=== PATIENT | female | born 1985 | race Caucasian/White ===

== ENCOUNTER 2017-04-20 03:56 | Inpatient (IN) | payer OTHER ==
[2017-04-20 05:26] LABS: BASOPHIL 0.2 % (0-2.0); EOSINOPHIL 0.5 % (0-4.5); MCH 32.1 pg (25.7-33.7); MCHC 34.3 g/dl (32.0-36.0); MEAN CELL VOLUME 93.6 fl (80-96); MEAN PLT VOLUME 8.1 fl (7.5-11.1); PLATELET COUNT 256 K/MM3 (134-434); RDW 13.7 % (11.6-15.6); WHITE BLOOD COUNT 7.8 K/mm3 (4.0-10.0)
--- NOTE | 2017-04-20 05:26 | PN ---
Progress Note (short form) - Note Progress Note: cx 2 cm 70 vx -3 , multiple variable decel , arom, clear fluid . scalp electrode applied, lt side, o2 , iv hydration, revaluate
[2017-04-20] MEDS ORDERED: CITRIC ACID/SODIUM CITRATE 30 ML UNIT-DOSE CUP PO ONE (05:28)
[2017-04-20] MEDS ORDERED: ELECTROLYTE-148 SOLN 1,000 ML IV SCH (05:30)
[2017-04-20 05:36] VITALS: BMI 27.6
[2017-04-20 06:03] LABS: INR 0.97 (0.82-1.09); PROTHROMBIN TIME (PATIENT) 10.7 SEC (9.98-11.88)
[2017-04-20 06:06] LABS: ACTIVATED PTT 29.8 SECONDS (26.9-34.4)
[2017-04-20 06:08] LABS: ANION GAP 8 (8-16); CALCIUM 8.5 mg/dL (8.5-10.1); CO2 24 mmol/L (21-32); CREATININE 0.6 mg/dL (0.55-1.02); GLUCOSE,RANDOM 87 mg/dL (74-106)
--- NOTE | 2017-04-20 06:22 | PN ---
Progress Note (short form) - Note Progress Note: cx 2 cm 70 vx -3 with multiple variable decelration, advised c/s in view of early labor and multiple variable with late component advised c/s. rba discussed
[2017-04-20] MEDS ORDERED: BENZOCAINE 20% 57 GM BOTTLE TP PRN (06:25)
[2017-04-20] MEDS ORDERED: diphenhydrAMINE HCL 25 MG CAPSULE (FP) PO PRN (06:25)
[2017-04-20] MEDS ORDERED: BENZOCAINE 28 GM HEMORRHOIDAL OINTMENT PR PRN (06:25)
[2017-04-20] MEDS ORDERED: METHYLERGONOVINE MALEATE 0.2 MG/1 ML AMP IM PRN (06:25)
[2017-04-20] MEDS ORDERED: WITCH HAZEL 50% (TUCKS) 40 PAD/JAR PAD TP PRN (06:25)
[2017-04-20] MEDS ORDERED: oxyCODONE HCL 5 MG TABLET PO PRN (06:25)
[2017-04-20] MEDS ORDERED: morphine SULFATE/Preservative Free 0.5 MG/ML (1cc Syringe) SPIN ONE (06:29)
[2017-04-20] MEDS ORDERED: OXYTOCIN 20 UNITS in 0.9% NS 1,000 ML IV SCH (06:30)
--- NOTE | 2017-04-20 06:31 | HP ---
Past Medical History - Primary Care Physician PCP:: Catarino Caruso - Admission Chief Complaint: 39 .2 weeks,labor, non reassuring fhr History of Present Illness: 31 yo f edc by sono 04/25/17 in labor , cx 2 cm 75 vx -3 mi, fhr cat 2, with multiple variable decel , ,3 rd visit to l&D , previous fhm stips had multiple variable as well , 2 decel with late component advised c/s rba discussed History Source: Patient Limitations to Obtaining History: No Limitations - Past Medical History ...: 1 ...Para: 0 ...Term: 0 ...: 0 ...Spon : 0 ...Induced : 0 ...Multiple Gestation: 0 ...LMP: 07/19/16 ... Weeks Gestation by Dates: 39.2 ...EDC by Dates: 04/25/17 ...EDC by Sono: 04/25/17 - Past Surgical History Hx Myomectomy: No Hx Transabdominal Cerclage: No - Smoking History Smoking history: Never smoked Have you smoked in the past 12 months: No - Alcohol/Substance Use Hx Alcohol Use: No - Social History History of Recent Travel: Yes Other Social History: transfer at 28 weeks ,from [facility] – [place] Home Medications - Allergies Allergies/Adverse Reactions: Allergies Allergy/AdvReac Type Severity Reaction Status Date / Time No Known Allergies Allergy Verified 04/17/17 09:31 - Home Medications Home Medications: Ambulatory Orders Ferrous Sulfate 325 mg PO DAILY 04/17/17 Vit #108/Iron/FA [ One Tablet] 1 tab PO DAILY 04/17/17 Review of Systems - Review of Systems Constitutional: reports: No Symptoms Eyes: reports: No Symptoms HENT: reports: No Symptoms Neck: reports: No Symptoms Cardiovascular: reports: No Symptoms Respiratory: reports: No Symptoms Gastrointestinal: reports: No Symptoms Genitourinary: reports: No Symptoms Breasts: reports: No Symptoms Reported Musculoskeletal: reports: No Symptoms Integumentary: reports: No Symptoms Neurological: reports: No Symptoms Physical Exam - Maternity Vital Signs: Vital Signs Temperature 98.1 F 04/20/17 05:00 Pulse Rate 85 04/20/17 05:00 Respiratory Rate 20 04/20/17 05:00 Blood Pressure 112/66 04/20/17 05:00 O2 Sat by Pulse Oximetry (%) Constitutional: Yes: Well Nourished, No Distress, Calm Eyes: Yes: WNL, Conjunctiva Clear, EOM Intact HENT: Yes: WNL, Atraumatic, Normocephalic Neck: Yes: WNL, Supple, Trachea Midline Cardiovascular: Yes: WNL, Regular Rate and Rhythm Breast(s): Yes: WNL - Abdominal Exam/OB Fundal Height: 38 Number of Fetuses: Single Contractions: Yes Regularity: Regular Intensity: Mod/Strong Monitor Mode: External Heart Rate Location: [facility] Category: II Accelerations: Non-Uniform Decelerations: Variable - Vaginal Exam/OB Vaginal Bleediing: No Speculum Exam: No Dilatation (cm): 2 cm Effacement (%): 50 Amniotic Membrane Status: Ruptured Amniotic Fluid: Yes: Blood Stained Meconium: Light Presentation: Vertex/Position Station: -3 - Physical Exam Edema: LLE: Trace, RLE: Trace Deep Tendon Reflex Grade: Normal +2 - Labs Lab Results: CBC, BMP 04/20/17 05:00 04/20/17 05:00 Hemorrhage Risk Assessment - Risk Factors High Risk Factors: Yes: None Risk Score: 0 Risk Level: Low Risk Problem List - Problems (1) 39 weeks gestation of Code(s): Z3A.39 - 39 WEEKS GESTATION OF (2) Labor established Code(s): SOM4357 - (3) Non-reassuring heart rate or rhythm affecting management of fetus Code(s): VPY8903 - Assessment/Plan c/s rba discussed
[2017-04-20] MEDS ORDERED: ONDANSETRON 4 MG/2 ML VIAL IVPB PRN (06:38)
[2017-04-20 07:31] LABS: VENOUS PH 7.37 (7.32-7.42)
[2017-04-20 07:32] LABS: VENOUS BLOOD GAS HCO3 26.1 meq/L (19-25)
[2017-04-20 07:34] LABS: ARTERIAL BLOOD GAS PO2 14.4 mmHg (80-100); ARTERIAL BLOOD GAS pH 7.29 (7.35-7.45)
[2017-04-20 07:35] LABS: ART PUNCT SITE OTHER; ARTERIAL BLD GAS O2 SATURATION 14.8 % (90-98.9); ARTERIAL BLOOD GAS BASE EXCESS 1.2 meq/l (-2-2); ARTERIAL BLOOD GAS HCO3 28.8 meq/L (22-26); LPM/O2% 21%; PT. ON O2? NO; TYPE OF O2 R/A
[2017-04-20] MEDS: IBUPROFEN 800 MG/8 ML IJ IVPB PRN ×2 (08:19→21:32)
--- NOTE | 2017-04-20 09:15 | OP ---
DATE OF OPERATION: 04/20/2017 PREOPERATIVE DIAGNOSES: , 39 weeks. Labor. Nonreassuring heart rate. POSTOPERATIVE DIAGNOSES: , 39 weeks. Labor. Nonreassuring heart rate. Cord around the neck x1 tight. PROCEDURE: Primary low-segment, transverse section. SURGEON: Nieves Caruso MD WHEEL TRUING MACHINE TENDER: LUIZ Bello ANESTHESIA: Spinal. ANESTHESIOLOGIST: Marek Henry MD ESTIMATED BLOOD LOSS: Five-hundred milliliters. OPERATION: The patient was taken to the operating room and had adequate spinal anesthesia. Abdomen and perineum was prepped and draped. Pfannenstiel abdominal skin incision was made. Abdominal wall was cut [id number]. Anterior peritoneum was exposed and incised. Upon entering the abdominal cavity, low uterine segment was identified and uterovesical fold of peritoneum established. Bladder was pushed down. Then, with the lower blade of the [place] retracting the pelvis, a low transverse uterine incision was made. Incision extended laterally. Amniotic sac was entered. Light meconium amniotic fluid was noted. There was a tight cord around the neck which was clamped and cut and then the head delivered. Nasopharynx was suctioned and a live baby was delivered without any difficulty. Placenta was delivered manually. Uterine cavity was cleaned of all remaining tissue. Uterine incision was closed in 2 layers, first layer with 0 Biosyn continuous suture and the second layer with 0 Biosyn imbricating the first layer. Bladder flap was closed with 0 Biosyn continuous suture. Both tubes and ovaries were checked and normal and no active bleeding was seen. All the laparotomy sponge and instrument counts were correct. Then, peritoneum was closed with 0 Biosyn continuous suture. Muscle was brought together with interrupted suture of 0 Biosyn. Fascia was closed with 0 Biosyn continuous suture, subcutaneous fat with interrupted suture of 0 Biosyn and the skin was closed with larry. Patient tolerated procedure well. Left the OR in good condition. NIEVES CARUSO M.D. [id number]
[2017-04-20] MEDS ORDERED: CEFAZOLIN 1 GM/D5W 50 ML IVPB SCH ×2 (10:00→14:00)
[2017-04-20] MEDS: CEFAZOLIN (PRE-DOCKED) 50 ML IVPB SCH ×2 (13:39→21:28)
[2017-04-20] MEDS: DEXTROSE 5%-LACTATED RINGERS 1,000 ML IV SCH (16:38)
[2017-04-20] MEDS ORDERED: IBUPROFEN 800 MG/8 ML IJ IVPB ONE (21:12)
[2017-04-21] MEDS: IBUPROFEN 600 MG TABLET (FP) PO PRN ×3 (05:50→19:57)
[2017-04-21] MEDS: SIMETHICONE 80 MG TAB.CHEW (FP) PO PRN ×3 (05:50→19:55)
[2017-04-21] MEDS: ACETAMINOPHEN 325 MG TABLET (FP) PO PRN ×2 (05:52→11:04)
[2017-04-21] MEDS ORDERED: BISACODYL 10 MG SUPP.RECT PR PRN (06:25)
--- NOTE | 2017-04-21 08:11 | PN ---
Post Progress Note - Subjective Subjective: c/o pain at op site , scale 7-8/10 voided after veliz was d/radha Post Day: 1 Type of Delivery: Primary C/S Vital Signs: Vital Signs Temperature 97.9 F 04/21/17 06:00 Pulse Rate 72 04/21/17 06:00 Respiratory Rate 18 04/21/17 07:00 Blood Pressure 131/44 04/21/17 06:00 O2 Sat by Pulse Oximetry (%) 100 04/20/17 08:00 Breast Exam: Yes: Soft, Other (BF ). No: Engorged Uterus: Yes: Fundus Firm, Fundus below umbilicus (tender ) Incision: Yes: Dressing dry and intact. No: Redness, Oozing Abdomen/GI: Yes: Abdomen soft, Tender, Tolerating PO (clear liquids ). No: Abdominal Distention (bs active ), Passing flatus Lochia: Yes: Rubra Lochia, amount: Moderate Extremities: Yes: Calves non-tender, Edema Perineum: Yes: Intact Activity: Ambulating - Labs Labs: CBC WBC 7.8 K/mm3 (4.0-10.0) 04/20/17 05:00 RBC 3.73 M/mm3 (3.60-5.2) 04/20/17 05:00 Hgb 12.0 GM/dL (10.7-15.3) 04/20/17 05:00 Hct 35.0 % (32.4-45.2) 04/20/17 05:00 MCV 93.6 fl (80-96) 04/20/17 05:00 MCH 32.1 pg (25.7-33.7) 04/20/17 05:00 MCHC 34.3 g/dl (32.0-36.0) 04/20/17 05:00 RDW 13.7 % (11.6-15.6) 04/20/17 05:00 Plt Count 256 K/MM3 (134-434) 04/20/17 05:00 MPV 8.1 fl (7.5-11.1) 04/20/17 05:00 Neutrophils % 74.0 % (42.8-82.8) 04/20/17 05:00 Lymphocytes % 16.3 % (8-40) 04/20/17 05:00 Monocytes % 9.0 % (3.8-10.2) 04/20/17 05:00 Eosinophils % 0.5 % (0-4.5) 04/20/17 05:00 Basophils % 0.2 % (0-2.0) 04/20/17 05:00 Other Findings, Remarks: RS cta urine output 1600 ml Assessment/Plan stable. post op cbc pending encourage po fluids, deep breathing & ambulation ct po care
[2017-04-21] MEDS: ENOXAPARIN NA (PORCINE) 40 MG/0.4 ML DISP.SYRIN SQ SCH (09:13)
[2017-04-21 09:50] LABS: BASOPHIL 0.1 % (0-2.0); EOSINOPHIL 0.5 % (0-4.5); MCH 31.8 pg (25.7-33.7); MCHC 33.6 g/dl (32.0-36.0); MEAN CELL VOLUME 94.8 fl (80-96); MEAN PLT VOLUME 7.9 fl (7.5-11.1); NEUTROPHILS 81.2 % (42.8-82.8); PLATELET COUNT 221 K/MM3 (134-434); RDW 14.2 % (11.6-15.6); WHITE BLOOD COUNT 10.6 K/mm3 (4.0-10.0)
[2017-04-21] MEDS: oxyCODONE HCL 5 MG TABLET PO PRN ×2 (11:04→19:56)
[2017-04-21] MEDS: DEXTROSE 5%-LACTATED RINGERS 1,000 ML IV SCH (12:17)
--- NOTE | 2017-04-21 16:13 | PN ---
Progress Note (short form) - Note Progress Note: Anesthesiology Post-op POD#1 s/p C/S under spinal anesthesia. Pt. feels well, denies h/a, able to walk without difficulty. No paresthesias. VSS.
[2017-04-22] MEDS: SIMETHICONE 80 MG TAB.CHEW (FP) PO PRN ×3 (01:57→14:49)
[2017-04-22] MEDS: IBUPROFEN 600 MG TABLET (FP) PO PRN ×3 (01:57→14:50)
[2017-04-22] MEDS: ACETAMINOPHEN 325 MG TABLET (FP) PO PRN ×3 (02:01→14:50)
[2017-04-22] MEDS: oxyCODONE HCL 5 MG TABLET PO PRN ×3 (02:05→14:49)
--- NOTE | 2017-04-22 07:47 | PN ---
Post Progress Note - Subjective Subjective: pain scale 6/10 Post Day: 2 Type of Delivery: Primary C/S Vital Signs: Vital Signs Temperature 98.2 F 04/21/17 22:00 Pulse Rate 83 04/21/17 22:00 Respiratory Rate 18 04/21/17 22:00 Blood Pressure 119/71 04/21/17 22:00 O2 Sat by Pulse Oximetry (%) 100 04/20/17 08:00 Breast Exam: Yes: Soft, Other (using breast pump ). No: Engorged Uterus: Yes: Fundus below umbilicus, Non-tender Incision: Yes: Dressing dry and intact (to be removed ) Abdomen/GI: Yes: Abdomen soft, Passing flatus (bm not done ), Tolerating PO ( diet ). No: Abdominal Distention, Tender Lochia: Yes: Rubra Lochia, amount: Moderate Extremities: Yes: Calves non-tender, Edema Activity: Ambulating - Labs Labs: CBC WBC 10.6 K/mm3 (4.0-10.0) H D 04/21/17 09:35 RBC 3.59 M/mm3 (3.60-5.2) L 04/21/17 09:35 Hgb 11.4 GM/dL (10.7-15.3) 04/21/17 09:35 Hct 34.0 % (32.4-45.2) 04/21/17 09:35 MCV 94.8 fl (80-96) 04/21/17 09:35 MCH 31.8 pg (25.7-33.7) 04/21/17 09:35 MCHC 33.6 g/dl (32.0-36.0) 04/21/17 09:35 RDW 14.2 % (11.6-15.6) 04/21/17 09:35 Plt Count 221 K/MM3 (134-434) 04/21/17 09:35 MPV 7.9 fl (7.5-11.1) 04/21/17 09:35 Neutrophils % 81.2 % (42.8-82.8) 04/21/17 09:35 Lymphocytes % 11.6 % (8-40) D 04/21/17 09:35 Monocytes % 6.6 % (3.8-10.2) 08/12/17 09:35 Eosinophils % 0.5 % (0-4.5) 04/21/17 09:35 Basophils % 0.1 % (0-2.0) 04/21/17 09:35 Assessment/Plan stable. plan ct po care encourage ambulation, & po fluids, deep breathing
[2017-04-22] MEDS: ENOXAPARIN NA (PORCINE) 40 MG/0.4 ML DISP.SYRIN SQ SCH (10:03)
[2017-04-22] MEDS ORDERED: SENNOSIDES/DOCUSATE COMBO (SENNA PLUS) TABLET (UD) PO PRN (22:00)
[2017-04-23] MEDS: ACETAMINOPHEN 325 MG TABLET (FP) PO PRN ×4 (00:43→21:10)
[2017-04-23] MEDS: IBUPROFEN 600 MG TABLET (FP) PO PRN ×4 (00:44→21:08)
--- NOTE | 2017-04-23 08:06 | PN ---
Post Progress Note - Subjective Subjective: c/o painscale 5-6 Post Day: 3 Type of Delivery: Primary C/S Vital Signs: Vital Signs Temperature 98.1 F 04/22/17 22:00 Pulse Rate 89 04/22/17 22:00 Respiratory Rate 18 04/22/17 22:00 Blood Pressure 125/71 04/22/17 22:00 O2 Sat by Pulse Oximetry (%) 100 04/20/17 08:00 Breast Exam: Yes: Soft. No: Engorged Uterus: Yes: Fundus Firm, Fundus below umbilicus, Non-tender Incision: Yes: Net[place] intact. No: Redness, Oozing Abdomen/GI: Yes: Abdomen soft, Passing flatus (bm done ), Tolerating PO (diet ) . No: Abdominal Distention, Tender Lochia: Yes: Rubra Lochia, amount: Moderate Extremities: Yes: Calves non-tender Perineum: Yes: Intact Activity: Ambulating - Labs Labs: CBC WBC 10.6 K/mm3 (4.0-10.0) H D 04/21/17 09:35 RBC 3.59 M/mm3 (3.60-5.2) L 04/21/17 09:35 Hgb 11.4 GM/dL (10.7-15.3) 04/21/17 09:35 Hct 34.0 % (32.4-45.2) 04/21/17 09:35 MCV 94.8 fl (80-96) 04/21/17 09:35 MCH 31.8 pg (25.7-33.7) 04/21/17 09:35 MCHC 33.6 g/dl (32.0-36.0) 04/21/17 09:35 RDW 14.2 % (11.6-15.6) 04/21/17 09:35 Plt Count 221 K/MM3 (134-434) 04/21/17 09:35 MPV 7.9 fl (7.5-11.1) 04/21/17 09:35 Neutrophils % 81.2 % (42.8-82.8) 04/21/17 09:35 Lymphocytes % 11.6 % (8-40) D 04/21/17 09:35 Monocytes % 6.6 % (3.8-10.2) 04/21/17 09:35 Eosinophils % 0.5 % (0-4.5) 04/21/17 09:35 Basophils % 0.1 % (0-2.0) 04/21/17 09:35 Assessment/Plan stable. plan ct po care
[2017-04-23] MEDS: SIMETHICONE 80 MG TAB.CHEW (FP) PO PRN ×3 (08:16→21:09)
[2017-04-23 08:26] LABS: BASOPHIL 0.2 % (0-2.0); EOSINOPHIL 2.1 % (0-4.5); MCH 31.8 pg (25.7-33.7); MCHC 33.4 g/dl (32.0-36.0); MEAN CELL VOLUME 95.3 fl (80-96); MEAN PLT VOLUME 7.8 fl (7.5-11.1); NEUTROPHILS 75.9 % (42.8-82.8); PLATELET COUNT 226 K/MM3 (134-434); RDW 13.8 % (11.6-15.6); WHITE BLOOD COUNT 7.9 K/mm3 (4.0-10.0)
[2017-04-23] MEDS: ENOXAPARIN NA (PORCINE) 40 MG/0.4 ML DISP.SYRIN SQ SCH (09:21)
--- NOTE | 2017-04-24 06:12 | PN ---
Post Progress Note - Subjective Subjective: pain better, ambulating Post Day: 4 Type of Delivery: Primary C/S Vital Signs: Vital Signs Temperature 98.3 F 04/23/17 22:00 Pulse Rate 87 04/23/17 22:00 Respiratory Rate 18 04/23/17 22:00 Blood Pressure 128/73 04/23/17 22:00 O2 Sat by Pulse Oximetry (%) 100 04/20/17 08:00 Breast Exam: Yes: Soft Uterus: Yes: Fundus Firm Incision: Yes: [place] intact Abdomen/GI: Yes: Abdomen soft Lochia: Yes: Rubra Lochia, amount: Small Extremities: Yes: Calves non-tender Perineum: Yes: Intact Activity: Ambulating - Labs Labs: CBC WBC 7.9 K/mm3 (4.0-10.0) 04/23/17 08:12 RBC 3.41 M/mm3 (3.60-5.2) L 04/23/17 08:12 Hgb 10.8 GM/dL (10.7-15.3) 04/23/17 08:12 Hct 32.5 % (32.4-45.2) 04/23/17 08:12 MCV 95.3 fl (80-96) 04/23/17 08:12 MCH 31.8 pg (25.7-33.7) 04/23/17 08:12 MCHC 33.4 g/dl (32.0-36.0) 04/23/17 08:12 RDW 13.8 % (11.6-15.6) 04/23/17 08:12 Plt Count 226 K/MM3 (134-434) 04/23/17 08:12 MPV 7.8 fl (7.5-11.1) 04/23/17 08:12 Neutrophils % 75.9 % (42.8-82.8) 04/23/17 08:12 Lymphocytes % 13.8 % (8-40) 04/23/17 08:12 Monocytes % 8.0 % (3.8-10.2) 04/23/17 08:12 Eosinophils % 2.1 % (0-4.5) D 04/23/17 08:12 Basophils % 0.2 % (0-2.0) 04/23/17 08:12 Assessment/Plan as above pain meds oob dc home
[2017-04-24] MEDS: IBUPROFEN 600 MG TABLET (FP) PO PRN (06:32)
[2017-04-24] MEDS: ACETAMINOPHEN 325 MG TABLET (FP) PO PRN (06:34)
[2017-04-24 08:22] VITALS: BP 127/69; PULSE 69; TEMP 99.1
[2017-04-24] MEDS: ENOXAPARIN NA (PORCINE) 40 MG/0.4 ML DISP.SYRIN SQ SCH (09:39)
--- NOTE | 2017-04-24 16:04 | PATH ---
Surgical Pathology Report Patient Name: SHERIF ZARAGOZA [facility]. Rec. #: [id number] /Age/Gender: 1985 (Age: 31) / F Account: [id number] Location: [facility] OBS/ADJUNCT BUSINESS INSTRUCTOR Taken: 04/20/2017 Received: 04/20/2017 Reported: 04/24/2017 Physicians: Catarino Caruso M.D. Specimen(s) Received PLACENTA Clinical History , 39.2 weeks Transfer and 28 weeks from [place]-no followup with [facility] for testing Primary c/section Final Diagnosis PLACENTA, DELIVERY: FOCALLY DISRUPTED THIRD TRIMESTER PLACENTA WITH CHRONIC DECIDUITIS, MODERATE PREVILLOUS, PERIVILLOUS, AND PRECHORIONIC FIBRIN DEPOSITION, THREE VESSEL UMBILICAL CORD, AND PLACENTAL MEMBRANES WITH MECONIUM HISTIOCYTOSIS AND FOCAL AMNION HYPERPLASIA. Electronically Signed Brian Donaldson M.D. Gross Description The specimen is received fresh, labeled "placenta" and is a 485 gram, 17.5 x 16.0 x 2.8 cm placenta with attached membranes and umbilical cord. The attached membranes are moncada-green, meconium stained, translucent with focal opacities and insert marginally. The umbilical cord measures 9 cm in length and averages 1.3 cm in diameter. The cord inserts eccentrically, 2.5 cm to the nearest margin. No true knots or strictures are identified. Cut surface of the umbilical cord reveals 3 vessels. The surface is collins-green, meconium stained with fibrin deposition and appropriate caliber vessels. The maternal surface is red-brown with focal defects. Sectioning reveals red-brown, spongy parenchyma. No focal lesions are identified. Billet Driller sections are submitted in three cassettes as follows: 1- membrane rolls and umbilical cord; 2-3- full thickness sections of placenta. 04/23/2017 saudi04/23/2017
== END 2017-04-24 11:15 | disposition home or self-care (01) | DRG 540 ==
LOC: JDEL 03:56 → JLDR 05:00 → J3W 09:02
PROVIDERS: ADMIT Obstetrics & Gynecology; ATTEND Obstetrics & Gynecology
PROC: 10D00Z1 Extraction of Products of Conception, Low, Open Approach (ICD-10-PCS; principal; 2017-04-20)
DX: O76 Abnormality in fetal heart rate and rhythm complicating labor and delivery (principal); O69.1XX0 Labor and delivery complicated by cord around neck, with compression, not applicable or unspecified; Z3A.39 39 weeks gestation of pregnancy; Z37.0 Single live birth
CPT/HCPCS: 36415; 36600; 80048; 82803; 85025; 85610; 85730; 86593; 86850; 86900; 86901; 88307-TC